=== PATIENT | female | born 1965 | race Two or more races ===

== ENCOUNTER 2025-01-09 17:38 | Emergency (ER) | payer OTHER ==
[~2025-01-09] VITALS: Ht 165.1 cm; Wt 172.4 kg
[2025-01-09] MEDS ORDERED: IBUPROFEN600 MG PO (21:19)
== END 2025-01-09 22:10 | disposition home or self-care (01) ==
LOC: ER 17:38
DX: M25.572 Pain in left ankle and joints of left foot (principal); M79.672 Pain in left foot; M25.562 Pain in left knee; W18.39XA Other fall on same level, initial encounter; Y93.89 Activity, other specified; Y92.89 Other specified places as the place of occurrence of the external cause